=== PATIENT | male | born 1960 | race Two or more races ===

== ENCOUNTER 2016-10-25 13:23 | Emergency (ER) | payer OTHER ==
[~2016-10-25] VITALS: Ht 180.3 cm; Wt 81.6 kg
[2016-10-25 13:35] VITALS: BP 154/87
[2016-10-25] MEDS ORDERED: oxyCODONE/APAP (5/325 MG) 1 UDTAB TABLET PO ONE (14:00)
[2016-10-25] MEDS ORDERED: oxyCODONE/APAP (5/325 MG) 1 UDTAB TABLET ONE (14:02)
--- NOTE | 2016-10-25 14:23 | NUR ---
Patient does not wish to proceed with medical care recommended by Edd Schroeder NP. Patient given information related to possible complications, up to and including , which could occur as a result of leaving the hospital at this time. Patient verbalizes understanding of risks involved due to leaving against medical advice. Patient has signed AMA form. Ambulatory with steady gait.
== END 2016-10-25 14:30 | disposition left against medical advice (07) ==
LOC: ER 13:24
DX: S80.11XA Contusion of right lower leg, initial encounter (principal); W22.8XXA Striking against or struck by other objects, initial encounter; Y92.89 Other specified places as the place of occurrence of the external cause; Y93.89 Activity, other specified; Y99.8 Other external cause status; F10.20 Alcohol dependence, uncomplicated
CPT/HCPCS: 99283; A4606; Z7610

== ENCOUNTER 2016-10-28 12:27 | Emergency (ER) | payer OTHER ==
[~2016-10-28] VITALS: Ht 180.3 cm; Wt 74.8 kg
[2016-10-28 12:35] VITALS: BP 110/54
[2016-10-28] MEDS ORDERED: KETOROLAC TROMETHAMINE INJ 30 MG/ML VIAL ONE (12:40)
[2016-10-28] MEDS ORDERED: KETOROLAC TROMETHAMINE INJ 60 MG/2 ML VIAL IM ONE (13:00)
== END 2016-10-28 12:57 | disposition home or self-care (01) ==
LOC: EDUNIT# 12:27 → ER 12:31
DX: M79.604 Pain in right leg (principal); G89.29 Other chronic pain; I10 Essential (primary) hypertension; F10.10 Alcohol abuse, uncomplicated
CPT/HCPCS: A4606; J1885; Z7610

== ENCOUNTER 2017-05-20 11:35 | Emergency (ER) | payer OTHER ==
[~2017-05-20] VITALS: Ht 182.9 cm; Wt 87.5 kg
[2017-05-20 11:35] VITALS: BP 116/68
[2017-05-20] MEDS ORDERED: HYDROCODONE/APAP 5/325MG 1 EACH TABLET ONE (11:58)
[2017-05-20] MEDS ORDERED: HYDROCODONE/APAP 5/325MG 1 EACH TABLET PO ONE (12:00)
--- NOTE | 2017-05-20 13:13 | NUR ---
PT REFUSED [facility] PRESCRIPTION, EDUCATED ON USE/RISKS/BENEFITS, STILL REFUSED TO ACCEPT THE PRESCRIPTION. PRESCRIPTION KEPT WITH CHART. DISCHARGE PAPERWORK SIGNED AND VERBALIZED UNDERSTANDING. PROVIDED WITH SANDWICH PER REQUEST.
== END 2017-05-20 13:15 | disposition home or self-care (01) ==
LOC: ER 11:35
DX: S80.11XA Contusion of right lower leg, initial encounter (principal); M85.80 Other specified disorders of bone density and structure, unspecified site; F10.10 Alcohol abuse, uncomplicated; W22.8XXA Striking against or struck by other objects, initial encounter; Y93.89 Activity, other specified; Y92.89 Other specified places as the place of occurrence of the external cause; Y99.8 Other external cause status
CPT/HCPCS: 73590; 99284; A4606; Z7610

== ENCOUNTER 2017-05-21 19:42 | Emergency (ER) | payer OTHER ==
[~2017-05-21] VITALS: Ht 185.4 cm; Wt 86.2 kg
--- NOTE | 2017-05-21 19:50 | NUR ---
BIBRA 86 FOR ETOH FOUND AT [facility]. FIELD BS = 97. PATIENT IS AWAKE. SATING WELL ON ROOM AIR. VSS
[2017-05-21 20:06] LABS: BASOPHILS % (AUTO) 0.6 % (0.0-2.0); EOSINOPHILS # (AUTO) 0.1 /CMM (0.0-0.7); EOSINOPHILS % (AUTO) 1.3 % (0.0-6.0); HEMATOCRIT 38 % (39-51); HEMOGLOBIN 12.7 g/dL (13.5-17.5); LYMPHOCYTES # (AUTO) 2.9 /CMM (0.8-4.8); LYMPHOCYTES % (AUTO) 46.6 % (20.0-44.0); MEAN CORPUSCULAR HEMOGLOBIN 32 PG (26.0-33.0); MEAN CORPUSCULAR HGB CONC 33 g/dl (31.0-36.0); MEAN CORPUSCULAR VOLUME 98 fL (80-96); MONOCYTES # (AUTO) 0.5 /CMM (0.1-1.30); MONOCYTES % (AUTO) 8.2 % (2.0-12.0); NEUTROPHILS # (AUTO) 2.6 /CMM (1.8-8.9); NEUTROPHILS % (AUTO) 43.3 % (43.0-81.0); PLATELET COUNT (AUTO) 170 /CMM (150-450); RDW COEFFICIENT OF VARIATION 15.2 (11.5-15.0); RED BLOOD CELL COUNT(AUTO) 3.92 MIL/uL (4.5-6.0); WHITE BLOOD COUNT (AUTO) 6.1 K/uL (4.3-11.0)
[2017-05-21 20:14] LABS: CALCIUM, SERUM 8.5 mg/dL (8.5-10.1); CARBON DIOXIDE 29 mmol/L (21-32); CHLORIDE 103 mmol/L (98-107); CREATININE 0.7 mg/dL (0.6-1.3); GLUCOSE 98 mg/dL (74-106); POTASSIUM 4.1 mmol/L (3.5-5.1); SODIUM SERUM 139 mmol/L (136-145); UREA NITROGEN, BLOOD 6 mg/dL (7-18)
[2017-05-21 20:21] LABS: ALANINE AMINOTRANSFERASE 44 U/L (12-78); ALCOHOL, BLOOD 429 mg/dL (0-0); ALKALINE PHOSPHATASE 52 U/L (46-116); ASPARTATE AMINOTRANSFERASE 53 U/L (15-37); BILIRUBIN,DIRECT 0.1 mg/dL (0.0-0.2); BILIRUBIN,TOTAL 0.2 mg/dL (0.2-1.0); TOTAL PROTEIN, SERUM 7.5 g/dL (6.4-8.2)
[2017-05-21 20:25] LABS: ACETAMINOPHEN < 2 ug/ml (10-30); SALICYLATE < 2.8 mg/dL (2.8-20.0)
[2017-05-21] MEDS ORDERED: ACETAMINOPHEN ES 500 MG TABLET PO ONE (21:00)
[2017-05-21] MEDS ORDERED: ACETAMINOPHEN ES 500 MG TABLET ONE (21:08)
[2017-05-21 21:36] LABS: APPEARANCE,URINE Clear (CLEAR); BILIRUBIN,URINE Negative (NEGATIVE); BLOOD, URINE Negative Ery/uL (NEGATIVE); COLOR,URINE Yellow (YELLOW); KETONES,URINE Negative (NEGATIVE); LEUKOCYTE ESTERASE ,URINE Negative (NEGATIVE); NITRITE, URINE Negative (NEGATIVE); PROTEIN,URINE Negative (NEGATIVE); UGLUCOSE Negative (NEGATIVE); UROBILINOGEN,URINE 0.2 EU/dL (0.2)
--- NOTE | 2017-05-22 05:05 | NUR ---
pt ok to discharge per dr jimenez. Patient discharged to home in stable condition. Written and verbal after care instructions given. Patient verbalizes understanding of instruction.Patient is awake and alert to self, day, and place. pt ambulatory with a steady gait
[2017-05-22 07:09] VITALS: BP 115/70
== END 2017-05-22 05:05 | disposition home or self-care (01) ==
LOC: ER 19:42
DX: F10.129 Alcohol abuse with intoxication, unspecified (principal); Z98.890 Other specified postprocedural states
CPT/HCPCS: 36415; 80048; 80076; 80305; 80329; 81001; 85025; 99284; A4606; G0480 ×2; Z7610; 81000-TC

== ENCOUNTER 2019-08-05 10:29 | Emergency (ER) | payer OTHER ==
[~2019-08-05] VITALS: Ht 182.9 cm; Wt 86.2 kg
[2019-08-05 13:34] VITALS: BP 115/85
--- NOTE | 2019-08-05 13:45 | NUR ---
AMBULATING IN HALLWAY WITH STEADY GAIT, OFFERED ACI,REFUSED,PROCEEDED TOWARDS THE DOOR
== END 2019-08-05 13:45 | disposition home or self-care (01) ==
LOC: ER 10:34
DX: F10.129 Alcohol abuse with intoxication, unspecified (principal); Y90.9 Presence of alcohol in blood, level not specified; Z59.0 Homelessness

== ENCOUNTER 2019-08-05 21:19 | Emergency (ER) | payer OTHER ==
[~2019-08-05] VITALS: Ht 182.9 cm; Wt 86.2 kg
[2019-08-05 21:39] VITALS: BP 134/80
--- NOTE | 2019-08-05 22:30 | NUR ---
CALLED TO TRIAGE BUT PT DOES NOT WANT TO GO BECAUSE ACCORDING TO HIM HE IS RESTING
--- NOTE | 2019-08-05 23:07 | NUR ---
CALLED BACK BUT PT IS SLEEPING
--- NOTE | 2019-08-06 00:10 | NUR ---
PT SLEEPING. MULTIPLE ATTEMPT BUT REFUSES TO WAKE UP
== END 2019-08-06 00:12 | disposition home or self-care (01) ==
LOC: ER 21:20
DX: Z53.21 Procedure and treatment not carried out due to patient leaving prior to being seen by health care provider (principal); M79.661 Pain in right lower leg; R22.41 Localized swelling, mass and lump, right lower limb

== ENCOUNTER 2019-09-09 14:45 | Emergency (ER) | payer OTHER ==
[~2019-09-09] VITALS: Ht 180.3 cm; Wt 88.5 kg
[2019-09-09 14:51] VITALS: BP 138/77
--- NOTE | 2019-09-09 15:20 | NUR ---
FOOD TRAY PROVIDED.
--- NOTE | 2019-09-09 15:40 | NUR ---
Patient discharged to home in stable condition. Written and verbal after care instructions given. Patient verbalizes understanding of instruction.
== END 2019-09-09 15:41 | disposition home or self-care (01) ==
LOC: ER 14:50
DX: F10.129 Alcohol abuse with intoxication, unspecified (principal); Z59.0 Homelessness; Y90.9 Presence of alcohol in blood, level not specified

== ENCOUNTER 2019-09-10 00:39 | Emergency (ER) | payer OTHER ==
[~2019-09-10] VITALS: Ht 180.3 cm; Wt 88.5 kg
[2019-09-10 00:39] VITALS: BP 137/67
[2019-09-10] MEDS ORDERED: IBUPROFEN 400 MG TABLET PO ONE (05:30)
[2019-09-10] MEDS ORDERED: IBUPROFEN 400 MG TABLET ONE (05:34)
== END 2019-09-10 05:38 | disposition home or self-care (01) ==
LOC: ER 00:40
DX: F10.10 Alcohol abuse, uncomplicated (principal); M79.604 Pain in right leg; G89.29 Other chronic pain; Y90.9 Presence of alcohol in blood, level not specified; Z59.0 Homelessness